=== PATIENT | female | born 1985 | race Caucasian/White ===

== ENCOUNTER → 2019-01-22 | Outpatient (CLI) | payer OTHER ==
--- NOTE | 2019-01-22 17:15 | US ---
EXAM DESCRIPTION: Venous,Lower Extremity LT: ULTRASOUND. CLINICAL HISTORY: PAIN RED SWELLING. Patient fell 10 years ago and remembers a large hematoma lateral distal left thigh. COMPARISON: None Available. TECHNIQUE: Rodriguez-scale and doppler sonographic evaluation of the deep venous system of the left lower extremity. FINDINGS: Doppler evaluation shows normal color flow and normal phasicity and augmentation of the left common femoral vein, femoral vein, popliteal vein, greater saphenous vein, junction with the CFV. Also normal color flow and normal phasicity and augmentation of the peroneal, and posterior tibial vein. The left lower extremity deep veins were completely compressible; normal occlusion with transducer pressure. Rodriguez-scale survey showed no echogenic thrombus within these veins. Scanning of the left lateral distal thigh at the region of skin erythema and thickening. In the subcutaneous adipose tissue is a oval-shaped objects with echogenic margins measuring 1.8 x 1.5 x 1.0 cm. Hypoechoic internal substance and posterior acoustic shadowing. Nonvascular and wider than tall orientation. No separate cyst or fluid collection. IMPRESSION: 1. Duplex ultrasound evaluation of the left lower extremity deep venous system showing no evidence of thrombosis. 2. Suggestion of a partially rim calcified mass 1.8 cm in long axis. This could be residual from prior injury. No definite abscess cavity. Electronically signed by: Rome Pugh MD 01/22/2019 5:14 PM CDT
== END ==
LOC: US 14:40
PROVIDERS: ATTEND Nurse Practitioner Family
DX: R22.42 Localized swelling, mass and lump, left lower limb (principal); M79.605 Pain in left leg